=== PATIENT | female | born 1995 | race Two or more races ===

== ENCOUNTER → 2018-02-10 | Outpatient (CLI) | payer MEDICAID ==
[2018-02-10 13:37] LABS: BASO # 0.1 10^3/uL (0.0-0.2); BASO % 0.4 % (0.0-1.0); EOS # 0.3 10^3/uL (0.0-0.50); EOS % 2.2 % (0.0-3.0); HEMATOCRIT 34.4 % (36.0-47.0); HEMOGLOBIN 11.5 g/dl (12.0-15.5); IMMATURE GRANULOCYTE % 0.7 % (0-3.0); LYMPH # 2.2 10^3/uL (1.5-6.5); LYMPH % 19.8 % (24.0-44.0); MEAN CORPUSCULAR HEMOGLOBIN 28.1 pg (27.0-33.0); MEAN CORPUSCULAR HGB CONC 33.4 g/dl (32.0-36.5); MEAN CORPUSCULAR VOLUME 84.1 fl (80.0-96.0); MONO # 0.8 10^3/uL (0.0-0.8); MONO % 7.3 % (0.0-5.0); NEUTROPHILS # 7.7 10^3/uL (1.8-7.7); NEUTROPHILS % 69.6 % (36.0-66.0); PLATELET COUNT, AUTOMATED 198 10^3/uL (150-450); RED BLOOD COUNT 4.09 10^6/uL (4.00-5.40); RED CELL DISTRIBUTION WIDTH 14.2 % (11.5-14.5); WHITE BLOOD COUNT 11.1 10^3/uL (4.0-10.0)
[2018-02-10 13:48] LABS: RUBELLA IgG QUALITATIVE IMMUNE (IMMUNE)
[2018-02-10 13:49] LABS: HBsAg Prenatal NEGATIVE (NEGATIVE)
[2018-02-10 14:17] LABS: HIV 1&2 SCREEN CENTAUR NEGATIVE (NEGATIVE)
== END ==
LOC: M SMT 10:18
DX: Z36.89 Encounter for other specified antenatal screening (principal)
CPT/HCPCS: 86762

== ENCOUNTER → 2018-02-13 | Outpatient (CLI) | payer MEDICAID | LOC: M RAD 06:43 | DX: Z34.82 Encounter for supervision of other normal pregnancy, second trimester (principal) | CPT/HCPCS: 76811 ==

== ENCOUNTER 2018-03-16 01:32 | Outpatient (CLI) | payer MEDICAID ==
[2018-03-16] MEDS: MAGNESIUM CITRATE 300 ML BTL PO (02:47)
== END 2018-03-16 08:44 | disposition home or self-care (01) ==
LOC: M LDO 01:32
DX: O99.89 Other specified diseases and conditions complicating pregnancy, childbirth and the puerperium (principal); K59.00 Constipation, unspecified; Z3A.22 22 weeks gestation of pregnancy

== ENCOUNTER → 2018-04-02 | Outpatient (CLI) | payer OTHER | LOC: M RAD 14:33 | DX: O30.042 Twin pregnancy, dichorionic/diamniotic, second trimester (principal); Z3A.24 24 weeks gestation of pregnancy; O32.2XX2 Maternal care for transverse and oblique lie, fetus 2 | CPT/HCPCS: 76816 ==